=== PATIENT | female | born 1980 | race Asian ===

== ENCOUNTER 2025-01-10 13:05 | Emergency (ER) | payer OTHER ==
[~2025-01-10] VITALS: Ht 152.4 cm; Wt 86.5 kg
--- NOTE | 2025-01-10 14:48 | Physician Documentation ---
History of Present Illness ~ Chief Complaint: Vaginal Bleeding Stated Complaint: POST OP BLEEDING Time Seen by MD: 14:30 HPI This is a 44-year-old female who presents to the emergency department reporting that she had a D&C done last Saturday. This was done due to persistent vaginal bleeding since October. Her surgeon is Dr. Frank Umana. Today, she notes that she is saturating an overnight pad an hour, having pelvic cramping, and feeling somewhat unwell and unsteady/dizzy. She denies N/V/D or chills/fever. Reports no dysuria. Medication Reconciliation Allergies: Coded Allergies: Sulfa (Sulfonamide Antibiotics) (Verified Allergy, Unknown, 01/10/25) nitrofurantoin (Verified Allergy, Unknown, 01/10/25) Scheduled PRN Hydrocodone Bit/Acetaminophen (Hydrocodon-Acetaminophen 5-325), 1 TAB PO Q12H PRN PRN for pain Review of Systems ROS As stated above in the HPI, otherwise all systems are reviewed and negative. Physical Exam Vital Signs: Temperature: 97.3, Source: Temporal, Heart Rate: 86, Respiratory Rate: 16, BP: 146/91, Pulse Oximetry: 98, Weight: 86.450 Oxygen Flow Rate: 0 Physical Exam General: Alert, no apparent distress. HEENT: PERRL, EOMI, no injection, moist mucous membranes. Neck: Full range of motion. Respiratory: Lungs clear, no respiratory distress. Chest: No accessory muscle use. Cardiovascular: Regular rate and rhythm, no murmurs. Gastrointestinal: Soft, nontender, nondistended. Bowels sounds present. Some TTP lower pelvis bilat without rebound or guarding. Extremities: Normal range of motion, no deformity. Neurologic: Oriented x4. Psychiatric: Normal mood and affect. Skin: Normal color, warm and dry. No edema, no ecchymosis. Progress Progress Note 5615: Phone consultation with Gynecologic surgeon Dr. Umana who advises that patient should be given tranexemic acid and may then be d/c'd home. He has a f/u appt with her early next week. Results/Orders Results/Orders Orders - ALYSSA HERRON NP Pelvic Set Up (01/10/25 ) * Iv Access / Saline Lock * (01/10/25 16:39) Tranexamic Acid 1gm/0.7% [place]. (Tranexami (01/10/25 16:40) Cult Urine + [address] (01/10/25 17:02) Completed Orders - ALYSSA HERRON TUBE ROOM SUPERVISOR Cbc/Diff (01/10/25 14:29) CMP (01/10/25 14:29) Type And Screen (01/10/25 14:29) Ketorolac Trometh 30mg/Ml Vial (Toradol (01/10/25 14:50) Hydrocodone/Apap 10/325 ([place] 10/325mg (01/10/25 15:55) Ua W/Microscopic, Cult If Ind (01/10/25 16:00) Medications Received in ER Medications (Trade) Dose Ordered Sig/[place] Route PRN Reason Start Time Stop Time Status Last Admin Dose Admin (Toradol inj. 30mg/ml) 30 mg ONCE ONCE IM 01/10/25 14:50 01/10/25 14:51 DC 01/10/25 15:03 30 MG ([place] 10/325mg tab) 1 tab ONCE ONCE PO 01/10/25 15:55 01/10/25 15:56 DC 01/10/25 16:03 1 TAB Vital Signs 01/10/25 01/10/25 01/10/25 01/10/25 13:16 15:03 16:03 16:04 Temp 97.3 Pulse 86 Resp 16 16 19 16 B/P (MAP) 146/91 Pulse Ox 98 O2 Flow Rate 0 Laboratory Tests Test 01/10/25 15:11 01/10/25 16:00 White Blood Count 10.3 Red Blood Count 3.48 L Hemoglobin 10.2 L Hematocrit 31.4 L Mean Corpuscular Volume 90.2 Mean Corpuscular Hemoglobin 29.4 Mean Corpuscular Hemoglobin Concent 32.6 L Red Cell Distribution Width 16.5 H Platelet Count 382 Mean Platelet Volume 8.2 Neutrophils (%) (Auto) 69.9 Lymphocytes (%) (Auto) 20.4 L Monocytes (%) (Auto) 8.4 Eosinophils (%) (Auto) 0.8 Basophils (%) (Auto) 0.5 Neutrophils # (Auto) 7.2 Lymphocytes # (Auto) 2.1 Monocytes # (Auto) 0.9 Eosinophils # (Auto) 0.1 Basophils # (Auto) 0.0 CBC Comment Sodium Level 142 Potassium Level 4.1 Chloride Level 107 Carbon Dioxide Level 25.5 Anion Gap 10 Blood Urea Nitrogen 15 Creatinine 0.81 Estimated GFR/1.73 m2 77 BUN/Creatinine Ratio 18.5 Glucose Level 100 Calcium Level 8.8 Total Bilirubin 0.2 Aspartate Amino Transf (AST/SGOT) 8 L Alanine Aminotransferase (ALT/SGPT) 20 Alkaline Phosphatase 62 Total Protein 7.2 Albumin 3.3 L Globulin 3.9 Albumin/Globulin Ratio 0.8 L Chemistry Comments Urine Specimen Description Cln catch midstream Urine Color Yellow Urine Clarity Turbid Urine pH 5.5 Urine Specific [place] >=1.030 Urine Protein 100 H Urine Glucose (UA) Negative Urine Ketones Negative Urine Occult Blood Large H Urine Nitrite Negative Urine Bilirubin Small Urine Urobilinogen 0.2 Urine Leukocyte Esterase Negative Urine RBC Tntc Urine WBC 5-10 H Urine Squamous Epithelial Cells Few Urine Transitional Epithelial Cells Few Urine Renal Cells Few Urine Amorphous Urates 1+ Urine Bacteria 1+ Urine Culture Indicated Indicated Volume Urine Centrifuged 10 ml Urine Comment Medical Decision Making Additional Comment This is a 44-year-old female who reports that she underwent a D&C last Saturday. She presents today due to concerns for pelvic cramping and vaginal bleeding. She was found to be mildly anemic with a hemoglobin of 10.2. She was found to be hemodynamically stable. Her it generalist was contacted, and notes that he has an appointment with her on Saturday. He recommended TXA. The patient was medicated with TXA in the ER. She was also medicated for pain. Probable UTI per UA, RX for antibiotics to pharmacy. She was then considered appropriate for discharge home. Departure Time of Disposition: 17:03 Disposition: 01 HOME / SELF CARE / HOMELESS Impression: Primary Impression: Vaginal bleeding Additional Impression: Urinary tract infection Condition: Stable Discharge Instructions: Menorrhagia, Urinary Tract Infection, Adult Additional Instructions: You were treated for vaginal bleeding and pain in the ER. Your urinalysis showed probable urinary tract infection for which you were prescribed antibiotics. Your it generalist Dr. Umana was contacted and advised of your symptoms and labs. Keep your followup appt with him early next week. Return if worse. Referrals: NO PRIMARY CARE PROVIDER (PCP) Prescriptions Doxycycline Hyclate (Doxycycline Hyclate) 100 Mg Capsule 1 CAP PO Q12H for 7 Days, #14 CAP Prov: ALYSSA HERRON TUBE ROOM SUPERVISOR 01/10/25 Hydrocodone Bit/Acetaminophen (Hydrocodon-Acetaminophen 5-325) 5 Mg-325 Mg Tablet 1 TAB PO Q12H PRN PRN for pain for 3 Days, #6 TAB Prov: ALYSSA HERRON NP 01/10/25 Education Educated: Patient, Family Educated regarding: diagnosis, treatment, prognosis, need for follow up Signature Scribe Signature: no scribe Attestation: The note accurately reflects work and decisions made by me.Alyssa Adair NP 01/10/25 16:40 ALYSSA HERRON NP Jan 10, 2025 14:48
[2025-01-10] MEDS: ketorolac trometh 30MG/ML vial 30 MG/ML VIAL IM ONE (15:03)
[2025-01-10 15:34] LABS: BASOPHILS % (AUTO) 0.5 % (0-1); EOSINOPHILS # (AUTO) 0.1 X10'3 (0-0.9); EOSINOPHILS % (AUTO) 0.8 % (0-6); HEMATOCRIT 31.4 % (35.0-45.0); HEMOGLOBIN 10.2 g/dl (12.0-16.0); LYMPHOCYTES # (AUTO) 2.1 X10'3 (1.1-4.8); LYMPHOCYTES % (AUTO) 20.4 % (21-51); MEAN CORPUSCULAR HEMOGLOBIN 29.4 PG (27.0-31.0); MEAN CORPUSCULAR HGB CONC 32.6 g/dL (33.0-36.5); MEAN CORPUSCULAR VOLUME 90.2 FL (78-98); MEAN PLATELET VOLUME 8.2 FL (7.4-10.4); MONOCYTES # (AUTO) 0.9 X10'3 (0-0.9); MONOCYTES % (AUTO) 8.4 % (2-12); NEUTROPHILS # (AUTO) 7.2 X10'3 (1.8-7.7); NEUTROPHILS % (AUTO) 69.9 % (42-75); PLATELET COUNT 382 X10'3 (140-440); RED BLOOD COUNT 3.48 X10'6 (4.20-5.60); RED CELL DISTRIBUTION WIDTH 16.5 % (11.5-14.5); WHITE BLOOD COUNT 10.3 X10'3 (4.5-11.0)
[2025-01-10 16:01] LABS: ALANINE AMINOTRANSFERASE 20 U/L (12-78); ALBUMIN 3.3 G/DL (3.4-5.0); ALBUMIN/GLOBULIN RATIO 0.8 (1.1-1.5); ALKALINE PHOSPHATASE 62 IU/L (46-116); ANION GAP 10 (8-16); ASPARTATE AMINO TRANSFERASE 8 U/L (10-37); BILIRUBIN,TOTAL 0.2 MG/DL (0.1-1.0); BLOOD UREA NITROGEN 15 MG/DL (7-18); BUN/CREATININE RATIO 18.5 (10.0-20.0); CALCIUM 8.8 MG/DL (8.5-10.1); CHLORIDE 107 MMOL/L (99-107); CREATININE 0.81 MG/DL (0.40-0.90); GLUCOSE 100 MG/DL (70-104); POTASSIUM 4.1 MMOL/L (3.5-5.1); SODIUM 142 MMOL/L (135-145); TOTAL CARBON DIOXIDE 25.5 MMOL/L (24-32); TOTAL PROTEIN 7.2 G/DL (6.4-8.2); eCRCL 64 ML/MIN; eGFR 77 ML/MIN
[2025-01-10] MEDS: HYDROcodone/acetaminophen 10/325mg tab PO ONE (16:03)
[2025-01-10] MEDS ORDERED: tranexamic acid inj. 1,000 MG in normal saline 100ml IV soln 90 ML IV ONE (16:40)
[2025-01-10 16:47] LABS: BILIRUBIN,URINE SMALL (Neg); CLARITY,URINE TURBID (Clear); COLOR,URINE YELLOW (Yellow); GLUCOSE, URINE NEGATIVE (Neg); KETONES,URINE NEGATIVE (Neg); LEUKOCYTE ESTERASE ,URINE NEGATIVE (Neg); NITRITES, URINE NEGATIVE (Neg); OCCULT BLOOD,URINE LARGE (Neg); PH,URINE 5.5 (4.8-8.0); PROTEIN,URINE 100 mg/dl (Neg); UROBILINOGEN,URINE 0.2 E.U/dL (0.2-1.0)
[2025-01-10 16:59] LABS: UA COLLECTION TYPE CLN CATCH MIDSTREAM
[2025-01-10 17:01] LABS: RBC,URINE TNTC /HPF (0-2)
[2025-01-10 17:02] LABS: AMORPHOUS URATES 1+; BACTERIA,URINE 1+ /HPF (Neg); RENAL CELLS, URINE FEW /HPF; SQUAMOUS EPITHELIAL CELL,UR FEW /LPF (FEW); TRANSITIONAL EPI CELLS,URINE FEW /HPF
[2025-01-10] MEDS ORDERED: HYDR-3965 PO (17:05)
[2025-01-10] MEDS ORDERED: HYDR-3964 PO (17:06)
[2025-01-10] MEDS ORDERED: DOXY-224 PO (17:28)
[2025-01-10] MEDS: tranexamic acid 1gm/0.7% sal. 100 ML IV ONE (17:28)
[2025-01-10 18:15] VITALS: TEMP 98.8
[2025-01-10] MEDS ORDERED: ONDA-243 PO (18:19)
[2025-01-10] MEDS: ondansetron/PF 4mg/2ml inj IV ONE (18:36)
[2025-01-10 18:42] VITALS: BP 165/74; PULSE 78; RESP 18; O2SAT 98
== END 2025-01-10 18:45 | disposition home or self-care (01) ==
LOC: ER 13:06
DX: N93.9 Abnormal uterine and vaginal bleeding, unspecified (principal); N39.0 Urinary tract infection, site not specified; Z88.1 Allergy status to other antibiotic agents; Z88.2 Allergy status to sulfonamides
CPT/HCPCS: 36415; 80053; 81001; 85025; 86885; 86900; 86901; 87088; 96365; 96372; 96375; 99284; J1885; J2405; J3490